=== PATIENT | female | born 1945 | race Two or more races ===

== ENCOUNTER 2023-12-12 12:46 | Inpatient (IN) | payer MEDICARE, OTHER ==
[~2023-12-12] VITALS: Ht 157.5 cm; Wt 65.8 kg
[2023-12-12] MEDS ORDERED: ONDANSETRON 4 MG/2 ML VIAL ONE (13:02)
[2023-12-12] MEDS ORDERED: MORPHINE SULFATE 4 MG/1 ML DISP.SYRIN ONE (13:03)
[2023-12-12] MEDS: ONDANSETRON 4 MG/2 ML VIAL IV ONE (13:09)
[2023-12-12] MEDS: IV NORMAL SALINE 500 ML BAG IV ONE (13:09)
[2023-12-12] MEDS ORDERED: BISA10SU61 RC (13:10)
[2023-12-12] MEDS ORDERED: MAGN400O6 PO (13:10)
[2023-12-12] MEDS ORDERED: ATOR10TA PO (13:10)
[2023-12-12] MEDS ORDERED: BUME1TAB8 PO (13:10)
[2023-12-12] MEDS ORDERED: PREG100C PO (13:10)
[2023-12-12] MEDS ORDERED: RANO500T6 PO (13:10)
[2023-12-12] MEDS ORDERED: MAGN400T52 PO (13:10)
[2023-12-12] MEDS ORDERED: BACL10TA PO (13:10)
[2023-12-12] MEDS ORDERED: ASPI81TA31 PO (13:10)
[2023-12-12] MEDS ORDERED: DOCU100C36 PO (13:10)
[2023-12-12] MEDS ORDERED: FAMO40TA7 PO (13:10)
[2023-12-12] MEDS ORDERED: TUBE5VIA2 TD (13:10)
[2023-12-12] MEDS ORDERED: METF-440 PO (13:10)
[2023-12-12] MEDS ORDERED: NA P133E RC (13:10)
[2023-12-12] MEDS ORDERED: MIRA25TA PO (13:10)
[2023-12-12] MEDS: MORPHINE SULFATE 2 MG/1 ML DISP.SYRIN IV ONE (13:10)
[2023-12-12] MEDS ORDERED: ISOS60TA72 PO (13:10)
[2023-12-12] MEDS ORDERED: CHOL100045 PO (13:10)
[2023-12-12 13:14] LABS: BASOPHILS # (AUTO) 0.1 K/UL (0.0-0.2); BASOPHILS % (AUTO) 0.6 % (0.0-2.0); DIFFERENTIAL COMMENT 1; EOSINOPHILS # (AUTO) 0.3 K/uL (0.0-0.7); EOSINOPHILS % (AUTO) 2.9 % (0.0-7.0); HEMATOCRIT 37.9 % (31.2-41.9); HEMOGLOBIN 12.7 g/dL (10.9-14.3); LYMPHOCYTES # (AUTO) 2.9 K/uL (0.8-4.8); LYMPHOCYTES % (AUTO) 26.9 % (20.5-51.5); MEAN CORPUSCULAR HEMOGLOBIN 30.2 uug (24.7-32.8); MEAN CORPUSCULAR HGB CONC 33 g/dL (32.3-35.6); MEAN CORPUSCULAR VOLUME 90.3 fL (75.5-95.3); MONOCYTES # (AUTO) 1.2 K/uL (0.1-1.30); MONOCYTES % (AUTO) 11.6 % (0.0-11.0); NEUTROPHILS # (AUTO) 6.2 K/uL (1.8-8.9); PLATELET COUNT (AUTO) 289 K/uL (179-408); RED CELL DISTRIBUTION WIDTH 14.7 % (12.3-17.7); WHITE BLOOD COUNT (AUTO) 10.6 K/uL (3.8-11.8)
[2023-12-12 13:21] LABS: CALCIUM 10.3 mg/dL (8.5-10.1); CARBON DIOXIDE 26 mmol/L (21-32); CHLORIDE 104 mmol/L (98-107); GLUCOSE 130 mg/dL (74-106); POTASSIUM 4.3 mmol/L (3.5-5.1); SODIUM SERUM 140 mmol/L (136-145); UREA NITROGEN, BLOOD 12 mg/dL (7-18)
[2023-12-12 13:27] LABS: ALANINE AMINOTRANSFERASE 18 U/L (14-59); ALKALINE PHOSPHATASE 65 U/L (50-136); ASPARTATE AMINOTRANSFERASE < 5 U/L (15-37); BILIRUBIN,DIRECT 0.1 mg/dL (0.0-0.2); BILIRUBIN,TOTAL 0.3 mg/dL (0.2-1.0); TOTAL PROTEIN, SERUM 7.1 g/dL (6.4-8.2)
[2023-12-12 13:36] LABS: LIPASE < 10 U/L (16-77)
[2023-12-12] MEDS ORDERED: BISACODYL 10 MG SUPP.RECT RC PRN (15:00)
[2023-12-12] MEDS ORDERED: FLEET ENEMA 133 ML BOTTLE RC PRN (15:00)
[2023-12-12] MEDS ORDERED: MAGNESIUM HYDROXIDE 30 ML LIQUID UDC PO PRN (15:00)
[2023-12-12] MEDS ORDERED: hydrALAZINE HCL 20 MG/1 ML VIAL IV PRN (15:15)
[2023-12-12] MEDS ORDERED: MORPHINE SULFATE 2 MG/1 ML DISP.SYRIN IVP PRN (15:15)
[2023-12-12] MEDS ORDERED: ONDANSETRON 4 MG/2 ML VIAL IV PRN (15:15)
[2023-12-12] MEDS ORDERED: DOCUSATE SODIUM 100 MG CAPSULE PO SCH (17:00)
[2023-12-12] MEDS: RANOLAZINE 500 MG TAB.ER.12H PO SCH (17:03)
[2023-12-12] MEDS: METFORMIN HCL 500 MG TABLET PO SCH (17:03)
[2023-12-12] MEDS: HEPARIN SODIUM,PORCINE 5,000 UNITS/ML VIAL SQ SCH (17:04)
[2023-12-12] MEDS: PREGABALIN 100 MG CAPSULE PO SCH (17:04)
[2023-12-12] MEDS: DOCUSATE SODIUM 100 MG CAPSULE PO SCH (17:04)
[2023-12-12] MEDS: ATORVASTATIN 10 MG TABLET PO SCH (17:06)
[2023-12-12 20:10] VITALS: BP 147/51; TEMP 97.7; O2SAT 96
[2023-12-13 05:22] LABS: *BILIRUBIN,URIN NEGATIVE (NEGATIVE); *BLOOD, URINE TRACE LYSED (NEGATIVE); *CLARITY,URINE CLEAR (CLEAR); *COLOR,URINE DARK YELLOW (YELLOW); *KETONES,URINE NEGATIVE (NEGATIVE); *PROTEIN,URINE NEGATIVE (NEGATIVE); *UROBILINOGEN,URINE 0.2 E.U./dl (NORMAL); LEUKOCYTE ESTERASE ,URINE NEGATIVE (NEGATIVE); NITRITE, URINE NEGATIVE (NEGATIVE); PH,URINE 5.5 (5.0-8.0); UGLUCOSE NEGATIVE (NEGATIVE)
[2023-12-13 05:28] LABS: BACTERIA,URINE NONE SEEN /HPF (NONE SEEN); RBC,URINE 0-3 /HPF (0-3); SQUAMOUS EPITHELIAL CELL,UR FEW /HPF (NONE SEEN); WBC,URINE 0-3 /HPF (0-3)
[2023-12-13 05:30] VITALS: BP 130/40; TEMP 97.8; O2SAT 96
[2023-12-13] MEDS: ACETAMINOPHEN 325 MG TABLET PO PRN (05:48)
[2023-12-13 06:38] LABS: BASOPHILS % (AUTO) 0.4 % (0.0-2.0); EOSINOPHILS # (AUTO) 0.3 K/uL (0.0-0.7); EOSINOPHILS % (AUTO) 2.6 % (0.0-7.0); HEMATOCRIT 38.8 % (31.2-41.9); HEMOGLOBIN 12.6 g/dL (10.9-14.3); LYMPHOCYTES # (AUTO) 2.8 K/uL (0.8-4.8); LYMPHOCYTES % (AUTO) 24.5 % (20.5-51.5); MEAN CORPUSCULAR HEMOGLOBIN 29.5 uug (24.7-32.8); MEAN CORPUSCULAR HGB CONC 33 g/dL (32.3-35.6); MEAN CORPUSCULAR VOLUME 90.7 fL (75.5-95.3); MONOCYTES # (AUTO) 1.3 K/uL (0.1-1.30); MONOCYTES % (AUTO) 11.5 % (0.0-11.0); PLATELET COUNT (AUTO) 299 K/uL (179-408); RED BLOOD CELL COUNT(AUTO) 4.27 MIL/uL (3.63-4.92); RED CELL DISTRIBUTION WIDTH 14.6 % (12.3-17.7); WHITE BLOOD COUNT (AUTO) 11.6 K/uL (3.8-11.8)
[2023-12-13 06:46] LABS: DIFFERENTIAL COMMENT 1
[2023-12-13 06:55] LABS: ALANINE AMINOTRANSFERASE 13 U/L (14-59); ALKALINE PHOSPHATASE 62 U/L (50-136); ASPARTATE AMINOTRANSFERASE < 5 U/L (15-37); BILIRUBIN,TOTAL 0.4 mg/dL (0.2-1.0); CALCIUM 9.9 mg/dL (8.5-10.1); CARBON DIOXIDE 27 mmol/L (21-32); CHLORIDE 105 mmol/L (98-107); CREATININE 0.9 mg/dL (0.6-1.3); GLUCOSE 108 mg/dL (74-106); PHOSPHOROUS 3.1 mg/dL (2.5-4.9); POTASSIUM 4.3 mmol/L (3.5-5.1); SODIUM SERUM 139 mmol/L (136-145); TOTAL PROTEIN, SERUM 6.8 g/dL (6.4-8.2); UREA NITROGEN, BLOOD 17 mg/dL (7-18)
[2023-12-13] MEDS: CHOLECALCIFEROL 1,000 UNIT TABLET PO SCH (08:18)
[2023-12-13] MEDS: ASPIRIN 81 MG TAB.CHEW PO SCH (08:18)
[2023-12-13] MEDS: BUMETANIDE 1 MG TABLET PO SCH (08:18)
[2023-12-13] MEDS: BACLOFEN 10 MG TABLET PO SCH (08:19)
[2023-12-13] MEDS: MAGNESIUM OXIDE 400 MG TABLET PO SCH (08:20)
[2023-12-13] MEDS: FAMOTIDINE 20 MG TABLET PO SCH (08:20)
[2023-12-13] MEDS: ISOSORBIDE MONONITRATE 60 MG TAB.SR.24H PO SCH (08:30)
[2023-12-13] MEDS ORDERED: Medication Not On Formulary EA (Cholecalciferol (Vitamin D3) (Vitamin D3) 1 CAP) PO SCH (09:00)
[2023-12-13] MEDS ORDERED: MAGNESIUM OXIDE PO SCH (09:00)
[2023-12-13 11:24] VITALS: BP 117/45; TEMP 98.2; O2SAT 96
[2023-12-13] MEDS ORDERED: ASPIRIN 81 MG TAB.CHEW PO SCH (14:44)
[2023-12-13] MEDS ORDERED: INSULIN REGULAR, HUMAN 300 UNIT/3 ML VIAL SQ PRN (15:15)
[2023-12-13] MEDS ORDERED: DEXTROSE 50% 50 ML DISP.SYRIN IV PRN (15:15)
[2023-12-13 15:35] VITALS: BP 128/52; TEMP 98.5; O2SAT 96
[2023-12-13] MEDS: BLOOD SUGAR DIAGNOSTIC 1 EACH STRIP VI SCH (16:41)
[2023-12-13 19:53] VITALS: BP 153/69; TEMP 97.8; O2SAT 96
[2023-12-14 05:40] VITALS: BP 143/56; TEMP 98.4; O2SAT 96
[2023-12-14 11:37] VITALS: BP 129/54; TEMP 97.6; O2SAT 98
[2023-12-14 16:34] VITALS: BP 138/48; TEMP 97.6; O2SAT 97
[2023-12-14 22:04] VITALS: BP 104/62; TEMP 97.5; O2SAT 95
[2023-12-15 07:21] VITALS: BP 147/57; TEMP 97.5; O2SAT 99
[2023-12-15 12:30] VITALS: BP 147/61; TEMP 97.6; O2SAT 99
== END 2023-12-15 12:20 | DRG 641 ==
LOC: ER 12:46 → MEDSURG3 15:50
PROVIDERS: ADMIT Internal Medicine; ATTEND Nurse Practitioner Acute Care
DX: R62.7 Adult failure to thrive (principal); K91.872 Postprocedural seroma of a digestive system organ or structure following a digestive system procedure; R10.33 Periumbilical pain; Z68.26 Body mass index [BMI] 26.0-26.9, adult; K80.20 Calculus of gallbladder without cholecystitis without obstruction; Z85.028 Personal history of other malignant neoplasm of stomach; E78.5 Hyperlipidemia, unspecified; E11.42 Type 2 diabetes mellitus with diabetic polyneuropathy; E86.0 Dehydration; Z88.0 Allergy status to penicillin; K21.9 Gastro-esophageal reflux disease without esophagitis; Z79.84 Long term (current) use of oral hypoglycemic drugs; Z79.899 Other long term (current) drug therapy; Z79.82 Long term (current) use of aspirin; N32.81 Overactive bladder; I10 Essential (primary) hypertension; K76.89 Other specified diseases of liver
CPT/HCPCS: 36415; 71045; 83690; 84100; 85025; 93005; A4606; A4663; G0378; J1644; J1815; J2270; J2405; J7040